=== PATIENT | male | born 1965 | race Two or more races ===

== ENCOUNTER 2017-03-18 08:39 | Emergency (ER) | payer MEDICAID ==
[~2017-03-18] VITALS: Ht 165.1 cm; Wt 84.4 kg
[2017-03-18] MEDS ORDERED: predniSONE 20 MG TAB PO ONE (10:15)
[2017-03-18] MEDS ORDERED: cloNIDine HCL 0.1 MG TAB PO ONE (11:00)
[2017-03-18 11:35] VITALS: BP 136/86
== END 2017-03-18 11:36 | disposition home or self-care (01) ==
LOC: ER 08:39
DX: G51.0 Bell's palsy (principal); I10 Essential (primary) hypertension; R42 Dizziness and giddiness; F17.210 Nicotine dependence, cigarettes, uncomplicated
CPT/HCPCS: 70450; 99284; J7512

== ENCOUNTER 2017-03-27 20:11 | Emergency (ER) | payer MEDICAID ==
[~2017-03-27] VITALS: Ht 167.6 cm; Wt 84.8 kg
[2017-03-27] MEDS ORDERED: cloNIDine HCL 0.1 MG TAB ONE (20:31)
[2017-03-27 20:37] VITALS: BP 156/110
[2017-03-27] MEDS ORDERED: cloNIDine HCL 0.1 MG TAB PO ONE (20:45)
[2017-03-27 21:40] LABS: Basophils # (auto) 0.1 uL; Basophils % (auto) 0.6 % (0.0-2.0); Eosinophils # (auto) 0.2 uL; Eosinophils % (auto) 1.2 % (0.0-7.0); Hematocrit 50.2 % (41.0-53.0); Hemoglobin 17.1 g/dL (13.5-17.5); Lymphocytes # (auto) 5.1 uL; Mean Corpuscular Hemoglobin 31.8 pg (28.0-32.0); Mean Corpuscular Hgb Conc. 34.1 g/dL (32.0-36.0); Mean Corpuscular Volume 93.2 fL (80.0-100.0); Monocytes # (auto) 0.8 uL; Monocytes % (auto) 6.3 % (0.0-12.0); Neutrophils # (auto) 6.9 uL; Neutrophils % (auto) 52.9 % (37.0-80.0); Nucleated Red Blood Cells % 0.5 %; Platelet Count (auto) 277 10^3/uL (140-450); Red Blood Cells 5.39 10^6/uL (4.5-5.90); Red Cell Distribution Width 14.3 % (11.8-14.3); White Blood Cell 13.1 10^3/uL (4.4-10.8)
[2017-03-27 21:55] LABS: Alanine Aminotransferase 109 U/L (16-61); Albumin 3.1 g/dL (3.4-5.0); Anion Gap 8 (5-15); Aspartate Aminotransferase 45 U/L (15-37); BUN/Creatinine Ratio 12.1; Blood Urea Nitrogen 16 mg/dL (7-18); Calcium 8.7 mg/dL (8.5-10.1); Carbon Dioxide 25 mmol/L (21-32); Chloride 106 mmol/L (98-107); GFR African American 74 mL/min; GFR Non-African American 61 mL/min; Glucose 107 mg/dL (74-106); Potassium 4.3 mmol/L (3.5-5.1); Sodium 139 mmol/L (136-145)
[2017-03-27 21:59] LABS: Alkaline Phosphatase 120 U/L (45-117); Bilirubin, Total 0.3 mg/dL (0.2-1.0); Total Protein 7.5 g/dL (6.4-8.2)
[2017-03-27 22:39] LABS: INR 0.95 (0.9-1.15); Partial Thromboplastin Time 24.7 sec (22.64-33.71); Prothrombin Time 10.3 sec (9.37-12.3)
== END 2017-03-28 05:44 | disposition left against medical advice (07) ==
LOC: ER 20:11
DX: R51 Headache (principal); R53.1 Weakness; Z53.21 Procedure and treatment not carried out due to patient leaving prior to being seen by health care provider
CPT/HCPCS: 36415; 70450; 80053; 84484; 85025; 85610; 85730; 93005